=== PATIENT | female | born 1970 | race Caucasian/White ===

== ENCOUNTER 2022-04-26 11:54 | Inpatient (IN) ==
[2022-04-26] MEDS ORDERED: SODIUM CHLORIDE 0.9% 1000ML 1,000 ML IV STA (12:05)
--- NOTE | 2022-04-26 12:12 | Emergency Department Note ---
History of Present Illness General Chief complaint: Arrhythmia/Palpitations Stated complaint: rapid heart rate, dizzy Time Seen by Provider: 04/26/22 11:58 Source: patient History of Present Illness Provider complaint: Tachycardia Onset (ago): month(s) 2 Location: chest Pain Consistency: + intermittent Quality: + other (Fast heartbeat) Relieved By: + rest Exacerbated By: + other (Climbing stairs) Associated symptoms: + shortness of breath; no chest pain, no cough, no fever/chills, no headaches or no nausea/vomiting This is a 51-year-old female who presents with tachycardia which has been going on intermittently for the past 2 months. She states over the past week it has been much more frequent and steady and occurs every time she climbs her stairs in her house. She did state that she rode 20 miles on her bike a week ago and she was not having any significant tachycardia. She states over the past week she gets short of breath when she climbs the stairs. She went to her doctor on Sunday of this week and she has a Zio patch heart monitor. She denies any associated chest discomfort or pain. She has had no fever, cough or cold symptoms, abdominal pain, vomiting, diarrhea, urinary symptoms or leg pain or swelling. She denies any recent immobilization or long trips. She does state that she had an IUD removed 2 weeks ago and had a little vaginal spotting when she went bike riding. She denies any black or bloody stools. Home Medications Medication Instructions Recorded Confirmed Type multivitamin with minerals-folic 2 tab PO HS 04/26/22 04/26/22 History acid 200 mcg chewable tablet (Adult Multivitamin Gummies) sertraline 25 mg tablet 25 mg PO HS 04/26/22 04/26/22 History Allergies Allergy/AdvReac Type Severity Reaction Status Date / Time Sulfa (Sulfonamide Allergy Intermediate SWELLING Verified 04/26/22 12:47 Antibiotics) OF HANDS & FEET Past Med/Surg History Medical History Depression Social History Smoking Status: Never smoker Feels Safe at Home: Yes Review of Systems See HPI for pertinent positives & negatives. and A total of 10 systems reviewed and were otherwise negative Physical Exam Vital Signs Vital Signs - 24 hr 04/26/22 11:55 04/26/22 12:14 04/26/22 12:30 Temperature 36.8 C Temperature Source Temporal Artery Scan Pulse Rate 119 H Pulse Rate [Left] 103 H Pulse Rhythm [Left] Regular Pulse Strength [Left] Normal Respiratory Rate 20 19 Respiratory Effort / Characteristics Non-Labored Spontaneous Non-Labored Respiratory Depth Normal Normal Respiratory Pattern Regular Regular Blood Pressure 129/69 Blood Pressure [Left Arm] 123/76 Blood Pressure Mean 89 Blood Pressure Mean [Left Arm] 91 Blood Pressure Position [Left Arm] Lying Pulse Oximetry 100 98 99 Oxygen Delivery Method Room Air Room Air Room Air Sepsis Recent Fever Within 48 Hours No Sepsis New/Unexplained Change in Mental Status No Sepsis Action Taken by Nursing No Action Required 04/26/22 13:00 04/26/22 13:30 04/26/22 15:00 Temperature Temperature Source Pulse Rate 134 H 109 H 114 H Pulse Rate [Left] Pulse Rhythm [Left] Pulse Strength [Left] Respiratory Rate 20 17 17 Respiratory Effort / Characteristics Respiratory Depth Respiratory Pattern Blood Pressure 153/98 H 127/81 138/74 Blood Pressure [Left Arm] Blood Pressure Mean 116 96 95 Blood Pressure Mean [Left Arm] Blood Pressure Position [Left Arm] Pulse Oximetry 97 98 94 Oxygen Delivery Method Room Air Room Air Room Air Sepsis Recent Fever Within 48 Hours Sepsis New/Unexplained Change in Mental Status Sepsis Action Taken by Nursing 04/26/22 15:30 Temperature Temperature Source Pulse Rate 110 H Pulse Rate [Left] Pulse Rhythm [Left] Pulse Strength [Left] Respiratory Rate 19 Respiratory Effort / Characteristics Respiratory Depth Respiratory Pattern Blood Pressure 125/76 Blood Pressure [Left Arm] Blood Pressure Mean 92 Blood Pressure Mean [Left Arm] Blood Pressure Position [Left Arm] Pulse Oximetry 94 Oxygen Delivery Method Room Air Sepsis Recent Fever Within 48 Hours Sepsis New/Unexplained Change in Mental Status Sepsis Action Taken by Nursing Constitutional: Vital signs reviewed. Eyes: Pupils are equal round reactive to light. Conjunctiva are noninjected. Sclera are icteric. ENT: Pharynx is clear without erythema or exudate. Mucous membranes are moist. No goiter or thyromegaly. Neck supple without meningeal signs. Respiratory: Clear to auscultation bilaterally. Breath sounds are equal bilate rally. Cardiovascular: Tachycardia. Regular rhythm. Zio patch on left chest. GI: Soft, nondistended and nontender. Bowel sounds are present. Rectal: Guaiac negative light brown stool. Musculoskeletal: No peripheral edema. No lower extremity tenderness. Integumentary: Jaundiced. Neurological: The patient is awake and alert. No focal deficits. Psychiatric: Somewhat anxious. Course Administered Medications Discontinued Medications Sodium Chloride (Nss 1000ml) 1,000 mls @ 999 mls/hr IV .[id number] STA Stop: 04/26/22 13:05 Last Infusion: 04/26/22 13:12 Dose: 0 mls/hr Documented by: [id number] Admin: 04/26/22 12:10 Dose: 999 mls/hr Documented by: [id number] Ioversol (Optiray 320 125ml) 119 ml IV ONCE ONE Stop: 04/26/22 13:48 Last Admin: 04/26/22 13:54 Dose: 119 ml Documented by: [id number] Critical Care Time Critical Care Time: Yes Total Critical Care Time: 35 I have personally spent approximately 35 minutes of critical care time in the direct management of this patient. This includes bedside care, interpretation of diagnostic studies, and testing, discussion with consultants, patient, and family members, and other required patient management activities. These minutes are in excess of all separately billable procedures. Medical Decision Making Differential Diagnosis Dysrhythmia, atrial fibrillation with RVR, metabolic derangement, electrolyte abnormality, pulmonary embolism Medical Records Attestation: I reviewed the patient's medical records. I did perform a limited focused review of portions of the patient's old chart on the electronic medical record. The patient has had no recent pertinent visits to this hospital. Home Medications Current Medication List: was personally reviewed by me Laboratory Data Attestation: I reviewed the patient's lab results. Result diagrams: 04/26/22 12:11 04/26/22 12:11 Lab Results 04/26/22 04/26/22 04/26/22 Range/Units 12:11 12:11 12:11 WBC 31.14 H* (4.8-10.8) K/uL RBC 1.38 L (4.2-5.4) M/uL Hgb 4.3 L* (12.0-16.0) g/dL Hct 13.6 L* (37-47) % MCV 98.6 (80-100) fL MCH 31.2 (25-34) pg MCHC 31.6 L (32-36) g/dL RDW Std Deviation 69.7 H (36.4-46.3) fL RDW Coeff of Rosie 24.6 H (11.5-14.5) % Plt Count 181 (130-400) K/uL MPV 8.6 (7.4-10.4) fL Neutrophils % (Manual) 21.7 % Lymphocytes % (Manual) 74.8 % Monocytes % (Manual) 2.2 % Eosinophils % (Manual) 0.4 % Metamyelocytes % (Man) 0.9 % Neutrophils # (Manual) 6.76 H (1.4-6.5) K/uL Total Absolute Neuts 6.76 H (1.4-6.5) K/uL Lymphocytes # (Manual) 23.29 H (1.2-3.4) K/uL Total Abs Lymphocytes 23.29 H (1.2-3.4) K/uL Monocytes # (Manual) 0.69 H (0.11-0.59) K/uL Eosinophils # (Manual) 0.12 (0-0.5) K/uL Metamyelocytes # (Man) 0.28 H (0-0) K/uL Blood Smear Review Polychromasia 2+ Anisocytosis Present Spherocytes 1+ D-Dimer 1100 H* (0-500) ug/L FEU Sodium (136-145) mmol/L Potassium (3.5-5.1) mmol/L Chloride (98-107) mmol/L Carbon Dioxide (21-32) mmol/L Anion Gap (3-11) BUN (6-23) mg/dl Creatinine (0.6-1.2) mg/dl Est Cr Clr Drug Dosing Est GFR ( Amer) ml/min Est GFR (Non-Af Amer) ml/min BUN/Creatinine Ratio (10-20) Glucose (70-99(Fasting)) mg/dl Uric Acid (2.6-7.2) mg/dl Calcium (8.5-10.1) mg/dl Magnesium (1.7-2.4) mg/dl Iron (35-150) mcg/dl Unsaturated IBC (155-355) mcg/dl Transferrin (200-360) mg/dl Ferritin (8-388) ng/ml Total Bilirubin (0.2-1.0) mg/dl Direct Bilirubin (0-0.2) mg/dl AST (13-39) U/L ALT (7-52) U/L Alkaline Phosphatase (34-104) U/L Lactate Dehydrogenase (86-244) U/L Troponin I High Sens (0-14) pg/ml Total Protein (6.0-8.3) gm/dl Albumin (3.4-5.0) gm/dl Globulin (2.5-4.0) gm/dl Albumin/Globulin Ratio (0.9-2) Vitamin B12 (180-914) pg/ml Folate (>5.38) ng/ml Procalcitonin (0-0.5) ng/ml TSH (0.300-4.500) uIu/ml HCG, Qual Negative (Negative) Lyme Disease IgG Ab (Negative) Lyme Disease IgM Ab (Negative) SARS-CoV-2, RNA, NAAT (NEGATIVE) Blood Type Blood Type Recheck Antibody Screen Crossmatch 04/26/22 04/26/22 04/26/22 Range/Units 12:11 12:11 13:19 WBC (4.8-10.8) K/uL RBC (4.2-5.4) M/uL Hgb (12.0-16.0) g/dL Hct (37-47) % MCV (80-100) fL MCH (25-34) pg MCHC (32-36) g/dL RDW Std Deviation (36.4-46.3) fL RDW Coeff of Rosie (11.5-14.5) % Plt Count (130-400) K/uL MPV (7.4-10.4) fL Neutrophils % (Manual) % Lymphocytes % (Manual) % Monocytes % (Manual) % Eosinophils % (Manual) % Metamyelocytes % (Man) % Neutrophils # (Manual) (1.4-6.5) K/uL Total Absolute Neuts (1.4-6.5) K/uL Lymphocytes # (Manual) (1.2-3.4) K/uL Total Abs Lymphocytes (1.2-3.4) K/uL Monocytes # (Manual) (0.11-0.59) K/uL Eosinophils # (Manual) (0-0.5) K/uL Metamyelocytes # (Man) (0-0) K/uL Blood Smear Review Polychromasia Anisocytosis Spherocytes D-Dimer (0-500) ug/L FEU Sodium 137 (136-145) mmol/L Potassium 3.9 (3.5-5.1) mmol/L Chloride 105 (98-107) mmol/L Carbon Dioxide 23 (21-32) mmol/L Anion Gap 9 (3-11) BUN 17 (6-23) mg/dl Creatinine 0.67 (0.6-1.2) mg/dl Est Cr Clr Drug Dosing Not Reportable Est GFR ( Amer) 116.3 ml/min Est GFR (Non-Af Amer) 100.4 ml/min BUN/Creatinine Ratio 25.4 H (10-20) Glucose 96 (70-99(Fasting)) mg/dl Uric Acid (2.6-7.2) mg/dl Calcium 9.4 (8.5-10.1) mg/dl Magnesium 2.0 (1.7-2.4) mg/dl Iron (35-150) mcg/dl Unsaturated IBC (155-355) mcg/dl Transferrin (200-360) mg/dl Ferritin (8-388) ng/ml Total Bilirubin 6.7 H (0.2-1.0) mg/dl Direct Bilirubin (0-0.2) mg/dl AST 71 H (13-39) U/L ALT 65 H (7-52) U/L Alkaline Phosphatase 203 H (34-104) U/L Lactate Dehydrogenase (86-244) U/L Troponin I High Sens 2.5 (0-14) pg/ml Total Protein 7.1 (6.0-8.3) gm/dl Albumin 4.2 (3.4-5.0) gm/dl Globulin 2.9 (2.5-4.0) gm/dl Albumin/Globulin Ratio 1.4 (0.9-2) Vitamin B12 (180-914) pg/ml Folate (>5.38) ng/ml Procalcitonin (0-0.5) ng/ml TSH 1.987 (0.300-4.500) uIu/ml HCG, Qual (Negative) Lyme Disease IgG Ab (Negative) Lyme Disease IgM Ab (Negative) SARS-CoV-2, RNA, NAAT (NEGATIVE) Blood Type O Positive Blood Type Recheck Antibody Screen POSITIVE A Crossmatch See Detail 04/26/22 04/26/22 04/26/22 Range/Units 13:23 15:02 15:50 WBC (4.8-10.8) K/uL RBC (4.2-5.4) M/uL Hgb (12.0-16.0) g/dL Hct (37-47) % MCV (80-100) fL MCH (25-34) pg MCHC (32-36) g/dL RDW Std Deviation (36.4-46.3) fL RDW Coeff of Rosie (11.5-14.5) % Plt Count (130-400) K/uL MPV (7.4-10.4) fL Neutrophils % (Manual) % Lymphocytes % (Manual) % Monocytes % (Manual) % Eosinophils % (Manual) % Metamyelocytes % (Man) % Neutrophils # (Manual) (1.4-6.5) K/uL Total Absolute Neuts (1.4-6.5) K/uL Lymphocytes # (Manual) (1.2-3.4) K/uL Total Abs Lymphocytes (1.2-3.4) K/uL Monocytes # (Manual) (0.11-0.59) K/uL Eosinophils # (Manual) (0-0.5) K/uL Metamyelocytes # (Man) (0-0) K/uL Blood Smear Review Polychromasia Anisocytosis Spherocytes D-Dimer (0-500) ug/L FEU Sodium (136-145) mmol/L Potassium (3.5-5.1) mmol/L Chloride (98-107) mmol/L Carbon Dioxide (21-32) mmol/L Anion Gap (3-11) BUN (6-23) mg/dl Creatinine (0.6-1.2) mg/dl Est Cr Clr Drug Dosing Est GFR ( Amer) ml/min Est GFR (Non-Af Amer) ml/min BUN/Creatinine Ratio (10-20) Glucose (70-99(Fasting)) mg/dl Uric Acid 2.3 L (2.6-7.2) mg/dl Calcium (8.5-10.1) mg/dl Magnesium (1.7-2.4) mg/dl Iron (35-150) mcg/dl Unsaturated IBC (155-355) mcg/dl Transferrin (200-360) mg/dl Ferritin (8-388) ng/ml Total Bilirubin (0.2-1.0) mg/dl Direct Bilirubin (0-0.2) mg/dl AST (13-39) U/L ALT (7-52) U/L Alkaline Phosphatase (34-104) U/L Lactate Dehydrogenase (86-244) U/L Troponin I High Sens (0-14) pg/ml Total Protein (6.0-8.3) gm/dl Albumin (3.4-5.0) gm/dl Globulin (2.5-4.0) gm/dl Albumin/Globulin Ratio (0.9-2) Vitamin B12 (180-914) pg/ml Folate (>5.38) ng/ml Procalcitonin (0-0.5) ng/ml TSH (0.300-4.500) uIu/ml HCG, Qual (Negative) Lyme Disease IgG Ab (Negative) Lyme Disease IgM Ab (Negative) SARS-CoV-2, RNA, NAAT NEGATIVE (NEGATIVE) Blood Type Blood Type Recheck O Positive Antibody Screen Crossmatch 04/26/22 04/26/22 04/26/22 Range/Units 15:50 15:50 15:50 WBC (4.8-10.8) K/uL RBC (4.2-5.4) M/uL Hgb (12.0-16.0) g/dL Hct (37-47) % MCV (80-100) fL MCH (25-34) pg MCHC (32-36) g/dL RDW Std Deviation (36.4-46.3) fL RDW Coeff of Rosie (11.5-14.5) % Plt Count (130-400) K/uL MPV (7.4-10.4) fL Neutrophils % (Manual) % Lymphocytes % (Manual) % Monocytes % (Manual) % Eosinophils % (Manual) % Metamyelocytes % (Man) % Neutrophils # (Manual) (1.4-6.5) K/uL Total Absolute Neuts (1.4-6.5) K/uL Lymphocytes # (Manual) (1.2-3.4) K/uL Total Abs Lymphocytes (1.2-3.4) K/uL Monocytes # (Manual) (0.11-0.59) K/uL Eosinophils # (Manual) (0-0.5) K/uL Metamyelocytes # (Man) (0-0) K/uL Blood Smear Review Polychromasia Anisocytosis Spherocytes D-Dimer (0-500) ug/L FEU Sodium (136-145) mmol/L Potassium (3.5-5.1) mmol/L Chloride (98-107) mmol/L Carbon Dioxide (21-32) mmol/L Anion Gap (3-11) BUN (6-23) mg/dl Creatinine (0.6-1.2) mg/dl Est Cr Clr Drug Dosing Est GFR ( Amer) ml/min Est GFR (Non-Af Amer) ml/min BUN/Creatinine Ratio (10-20) Glucose (70-99(Fasting)) mg/dl Uric Acid (2.6-7.2) mg/dl Calcium (8.5-10.1) mg/dl Magnesium (1.7-2.4) mg/dl Iron 119 (35-150) mcg/dl Unsaturated IBC 218 (155-355) mcg/dl Transferrin 211 (200-360) mg/dl Ferritin 324.6 (8-388) ng/ml Total Bilirubin (0.2-1.0) mg/dl Direct Bilirubin 1.1 H (0-0.2) mg/dl AST (13-39) U/L ALT (7-52) U/L Alkaline Phosphatase (34-104) U/L Lactate Dehydrogenase 427 H (86-244) U/L Troponin I High Sens (0-14) pg/ml Total Protein (6.0-8.3) gm/dl Albumin (3.4-5.0) gm/dl Globulin (2.5-4.0) gm/dl Albumin/Globulin Ratio (0.9-2) Vitamin B12 344 (180-914) pg/ml Folate 21.68 (>5.38) ng/ml Procalcitonin (0-0.5) ng/ml TSH (0.300-4.500) uIu/ml HCG, Qual (Negative) Lyme Disease IgG Ab (Negative) Lyme Disease IgM Ab (Negative) SARS-CoV-2, RNA, NAAT (NEGATIVE) Blood Type Blood Type Recheck Antibody Screen Crossmatch 04/26/22 Range/Units 15:50 WBC (4.8-10.8) K/uL RBC (4.2-5.4) M/uL Hgb (12.0-16.0) g/dL Hct (37-47) % MCV (80-100) fL MCH (25-34) pg MCHC (32-36) g/dL RDW Std Deviation (36.4-46.3) fL RDW Coeff of Rosie (11.5-14.5) % Plt Count (130-400) K/uL MPV (7.4-10.4) fL Neutrophils % (Manual) % Lymphocytes % (Manual) % Monocytes % (Manual) % Eosinophils % (Manual) % Metamyelocytes % (Man) % Neutrophils # (Manual) (1.4-6.5) K/uL Total Absolute Neuts (1.4-6.5) K/uL Lymphocytes # (Manual) (1.2-3.4) K/uL Total Abs Lymphocytes (1.2-3.4) K/uL Monocytes # (Manual) (0.11-0.59) K/uL Eosinophils # (Manual) (0-0.5) K/uL Metamyelocytes # (Man) (0-0) K/uL Blood Smear Review Polychromasia Anisocytosis Spherocytes D-Dimer (0-500) ug/L FEU Sodium (136-145) mmol/L Potassium (3.5-5.1) mmol/L Chloride (98-107) mmol/L Carbon Dioxide (21-32) mmol/L Anion Gap (3-11) BUN (6-23) mg/dl Creatinine (0.6-1.2) mg/dl Est Cr Clr Drug Dosing Est GFR ( Amer) ml/min Est GFR (Non-Af Amer) ml/min BUN/Creatinine Ratio (10-20) Glucose (70-99(Fasting)) mg/dl Uric Acid (2.6-7.2) mg/dl Calcium (8.5-10.1) mg/dl Magnesium (1.7-2.4) mg/dl Iron (35-150) mcg/dl Unsaturated IBC (155-355) mcg/dl Transferrin (200-360) mg/dl Ferritin (8-388) ng/ml Total Bilirubin (0.2-1.0) mg/dl Direct Bilirubin (0-0.2) mg/dl AST (13-39) U/L ALT (7-52) U/L Alkaline Phosphatase (34-104) U/L Lactate Dehydrogenase (86-244) U/L Troponin I High Sens (0-14) pg/ml Total Protein (6.0-8.3) gm/dl Albumin (3.4-5.0) gm/dl Globulin (2.5-4.0) gm/dl Albumin/Globulin Ratio (0.9-2) Vitamin B12 (180-914) pg/ml Folate (>5.38) ng/ml Procalcitonin 0.35 (0-0.5) ng/ml TSH (0.300-4.500) uIu/ml HCG, Qual (Negative) Lyme Disease IgG Ab Negative (Negative) Lyme Disease IgM Ab Negative (Negative) SARS-CoV-2, RNA, NAAT (NEGATIVE) Blood Type Blood Type Recheck Antibody Screen Crossmatch Imaging Data Radiologist's Impression: Chest X-Ray 04/26/22 12:06 XR chest 1V portable CLINICAL HISTORY: Dysrhythmia. COMPARISON STUDY: No previous studies for comparison. TECHNIQUE: 1 view of the chest FINDINGS: Single frontal view of the chest demonstrates the cardiomediastinal silhouette to be within normal limits. A mechanical device is superimposed over the left upper lung. The lungs are clear of alveolar opacities. There is no evidence for pleural effusion. There is no evidence for vascular congestion. There is no acute osseous pathology. IMPRESSION: 1. No acute cardiopulmonary disease. ACT 112: Negative or not required by law. Electronically signed by: Gerard Ricci M.D. 04/26/2022 12:28 PM Abdomen/Pelvis CT 04/26/22 13:14 CT ANGIOGRAM OF THE CHEST; CT SCAN OF THE ABDOMEN AND PELVIS WITH IV CONTRAST CLINICAL HISTORY: Dyspnea. Jaundice. COMPARISON STUDY: Chest x-ray dated 04/26/2022. TECHNIQUE: Following the IV administration of 119 of Optiray 320, CT angiogram o f the chest is performed from the upper abdomen to the thoracic inlet utilizing the pulmonary embolus protocol. Images are reviewed in the axial, sagittal, coronal planes. 3-D MIPS images are created and assessed. Subsequently, CT scan of the abdomen and pelvis was performed from the lung bases to the proximal femora. Images are reviewed in the axial, sagittal, and coronal planes. IV contrast was administered without complication. A dose lowering technique was utilized adhering to the principles of ALARA. CT DOSE: 1302.15 mGycm FINDINGS: CHEST: Thyroid: Imaged portions of the thyroid gland are normal in size and attenuation. Thoracic aorta: The thoracic aorta is normal in caliber and demonstrates standard 3-vessel arch anatomy. No dissection is seen. Pulmonary vasculature: The pulmonary trunk is normal in caliber. There are no filling defects identified in the main, lobar, or segmental pulmonary arteries to indicate pulmonary embolus. Heart: The heart is normal in size and without pericardial effusion. Lungs and pleural spaces: There is no lobar consolidation or pleural effusion. Dependent atelectasis is present in both lungs. The trachea and central airways are clear. A punctate nodule in the right upper lobe as seen on image #193. A 9 mm subsolid nodule in the right lower lobe as seen on image 86. A 4 mm subsolid nodule in the right upper lobe as seen on image 196, and a 4 mm subsolid nodule in the left lower lobe as seen on image #175. Mild intralobular septal thic kening is noted. Esophagus: Esophageal wall appears circumferentially thickened. A small hiatal hernia is noted. Mediastinum: There is no mediastinal lymphadenopathy. Amrita: Clear. Axillae: There is no axillary lymphadenopathy. Bony thorax: No lytic or blastic lesions are identified. ABDOMEN AND PELVIS: Liver: The contrast-enhanced liver is normal in size, contour, and attenuation. There is no intrahepatic or ductal dilatation. The hepatic veins and portal veins are patent. Gallbladder: Unremarkable. Spleen: The spleen is markedly enlarged measuring 19.7 cm in length. Pancreas: Unremarkable. Adrenal glands: Unremarkable. Kidneys: The contrast enhanced kidneys are normal in size and without hydronephrosis. The kidneys enhance symmetrically. A 5.2 cm cyst arises from the lower pole of the left kidney. Additional subcentimeter cortical hypodensities also likely represent cysts but are too small for definitive characterization. Mild urothelial thickening and enhancement is noted involving both ureters. Abdominal vasculature: The abdominal aorta is normal in course and caliber noting scattered foci of atherosclerotic calcification. Bowel: There is mild to moderate colonic diverticulosis without CT evidence of acute diverticulitis. No bowel obstruction is seen. Mild fecal retention is seen throughout the colon. The appendix is well-visualized and normal. Uterus, Peritoneum: There is no intraperitoneal free air or abdominal ascites. There is a small fat-containing umbilical hernia. Lymphadenopathy: None. Pelvic viscera: The bladder is normal as visualized. Enhancing myometrial lesions are pathologically indeterminant but typical for fibroids. No adnexal lesion is seen. A fat-containing hernia is noted in the right groin. Skeletal structures: No lytic or blastic lesions are seen. IMPRESSION: 1. There is no evidence of pulmonary embolus in the main, lobar, or segmental pulmonary arteries. 2. There is no lobar consolidation or pleural effusion. 3. Mild intralobular septal thickening there is suggested throughout both lungs. Correlate clinically for evidence of fluid overload/mild congestion. 4. Subsolid pulmonary nodules measure up to 9 mm. These are pathologically indeterminant and may be inflammatory. A 6 month follow-up chest CT is recommend ed for reassessment. 5. Marked splenomegaly. 6. The esophagus appears circumferentially thickened. Correlate clinically for evidence of esophagitis. This can be further assessed with endoscopy if clinically warranted. 7. Mild urothelial thickening and enhancement is seen involving both ureters. Correlate with clinical findings and urinalysis. 8. Enhancing myometrial lesions are pathologically indeterminant but typical for fibroids. 9. No pathologically enlarged lymph nodes are identified in the chest, abdomen, or pelvis. 10. The liver is normal in appearance with no intra- or extrahepatic biliary ductal dilatation. 11. Additional findings as above. ACT 112: Negative or not required by law. Electronically signed by: Juan Seth M.D. 04/26/2022 2:11 PM Chest CTA 04/26/22 13:14 CT ANGIOGRAM OF THE CHEST; CT SCAN OF THE ABDOMEN AND PELVIS WITH IV CONTRAST CLINICAL HISTORY: Dyspnea. Jaundice. COMPARISON STUDY: Chest x-ray dated 04/26/2022. TECHNIQUE: Following the IV administration of 119 of Optiray 320, CT angiogram of the chest is performed from the upper abdomen to the thoracic inlet utilizing the pulmonary embolus protocol. Images are reviewed in the axial, sagittal, coronal planes. 3-D MIPS images are created and assessed. Subsequently, CT scan of the abdomen and pelvis was performed from the lung bases to the proximal femora. Images are reviewed in the axial, sagittal, and coronal planes. IV contrast was administered without complication. A dose lowering technique was utilized adhering to the principles of ALARA. CT DOSE: 1302.15 mGycm FINDINGS: CHEST: Thyroid: Imaged portions of the thyroid gland are normal in size and attenuation. Thoracic aorta: The thoracic aorta is normal in caliber and demonstrates st andard 3-vessel arch anatomy. No dissection is seen. Pulmonary vasculature: The pulmonary trunk is normal in caliber. There are no filling defects identified in the main, lobar, or segmental pulmonary arteries to indicate pulmonary embolus. Heart: The heart is normal in size and without pericardial effusion. Lungs and pleural spaces: There is no lobar consolidation or pleural effusion. Dependent atelectasis is present in both lungs. The trachea and central airways are clear. A punctate nodule in the right upper lobe as seen on image #193. A 9 mm subsolid nodule in the right lower lobe as seen on image 86. A 4 mm subsolid nodule in the right upper lobe as seen on image 196, and a 4 mm subsolid nodule in the left lower lobe as seen on image #175. Mild intralobular septal thickening is noted. Esophagus: Esophageal wall appears circumferentially thickened. A small hiatal hernia is noted. Mediastinum: There is no mediastinal lymphadenopathy. Amrita: Clear. Axillae: There is no axillary lymphadenopathy. Bony thorax: No lytic or blastic lesions are identified. ABDOMEN AND PELVIS: Liver: The contrast-enhanced liver is normal in size, contour, and attenuation. There is no intrahepatic or ductal dilatation. The hepatic veins and portal veins are patent. Gallbladder: Unremarkable. Spleen: The spleen is markedly enlarged measuring 19.7 cm in length. Pancreas: Unremarkable. Adrenal glands: Unremarkable. Kidneys: The contrast enhanced kidneys are normal in size and without hydronephrosis. The kidneys enhance symmetrically. A 5.2 cm cyst arises from the lower pole of the left kidney. Additional subcentimeter cortical hypodensities also likely represent cysts but are too small for definitive characterization. Mild urothelial thickening and enhancement is noted involving both ureters. Abdominal vasculature: The abdominal aorta is normal in course and caliber noting scattered foci of atherosclerotic calcification. Bowel: There is mild to moderate colonic diverticulosis without CT evidence of acute diverticulitis. No bowel obstruction is seen. Mild fecal retention is seen throughout the colon. The appendix is well-visualized and normal. Uterus, Peritoneum: There is no intraperitoneal free air or abdominal ascites. There is a small fat-containing umbilical hernia. Lymphadenopathy: None. Pelvic viscera: The bladder is normal as visualized. Enhancing myometrial lesions are pathologically indeterminant but typical for fibroids. No adnexal lesion is seen. A fat-containing hernia is noted in the right groin. Skeletal structures: No lytic or blastic lesions are seen. IMPRESSION: 1. There is no evidence of pulmonary embolus in the main, lobar, or segmental pulmonary arteries. 2. There is no lobar consolidation or pleural effusion. 3. Mild intralobular septal thickening there is suggested throughout both lungs. Correlate clinically for evidence of fluid overload/mild congestion. 4. Subsolid pulmonary nodules measure up to 9 mm. These are pathologically indeterminant and may be inflammatory. A 6 month follow-up chest CT is recommended for reassessment. 5. Marked splenomegaly. 6. The esophagus appears circumferentially thickened. Correlate clinically for evidence of esophagitis. This can be further assessed with endoscopy if clinically warranted. 7. Mild urothelial thickening and enhancement is seen involving both ureters. Correlate with clinical findings and urinalysis. 8. Enhancing myometrial lesions are pathologically indeterminant but typical for fibroids. 9. No pathologically enlarged lymph nodes are identified in the chest, abdomen, or pelvis. 10. The liver is normal in appearance with no intra- or extrahepatic biliary ductal dilatation. 11. Additional findings as above. ACT 112: Negative or not required by law. Electronically signed by: Juan Seth M.D. 04/26/2022 2:11 PM ECG Data Attestation: I personally reviewed and interpreted this ECG as follows: Indication: + tachycardia Rate (beats per minute): 110 Rhythm: + sinus tachycardia ECG [place]: + Normal ECG ST segments: no ST elevation ECG Findings: no PVCs Comparison ECG Date: no prior available MDM Narrative I did evaluate the patient as noted above. She is presenting with intermittent tachycardia for about 2 months. Over the past week it became more constant and related to climbing up the stairs in her house. She has seen her doctor who placed a ZIO heart monitor on her. She came in today because she felt lightheaded with her tachycardia. She does appear pale and jaundiced on exam. IV access was established. I did treat her with a liter normal saline IV. I did place an order for continuous cardiac monitoring. The monitor showed sinus tachycardia rate of 111 bpm. I did order and personally review the patient's 12-lead EKG as described above. She has sinus tachycardia without ischemic changes. No right-sided strain. I did order and personally reviewed the images of the patient's chest x-ray as described above. There is no evidence of pneumonia or acute cardiopulmonary process. I did order and review the patient's blood work as noted in the electronic medical record. She does have a white count of 31,000 with a hemoglobin of 4.3 and a platelet count of 181. D- dimer is elevated at 1100. CMP is remarkable for a total bili of 6.7 AST of 71 ALT of 65 and alk phos of 203. High-sensitivity troponin is negative. Beta-hCG is negative. I did discuss the test results with the patient. I did perform a rectal examination which showed guaiac negative brown stool. I did obtain informed consent for blood transfusion. I did order 2 units of packed RBCs to be transfused immediately. After discussion with the patient, I did order a CT angiogram of the chest and CT of the abdomen and pelvis. I did review the images myself as well as the radiology report as described above. There is no evidence of pulmonary embolism. She has no biliary obstruction or liver or gallbladder disease on CT scan. She does have significant splenomegaly. She likely has a hemolytic process causing her anemia and hyperbilirubinemia. I was informed by the blood bank that the patient will require special testing at [place] and then blood products from [facility] which will take 6 to 8 hours. I did inform the patient of the delay. She remains hemodynamically stable with mild tachycardia. I did discuss case with the hospitalist and lead case manager. Impression & Plan Symptomatic anemia, Lymphocytosis, Hyperbilirubinemia, Tachycardia, Dyspnea on exertion, Splenomegaly Discharge Plan Visit Data Chief Complaint: Arrhythmia/Palpitations Stated Complaint: rapid heart rate, dizzy ED Provider: Lavelle Childers Discharge Problem: Symptomatic anemia, Lymphocytosis, Hyperbilirubinemia, Tachycardia, Dyspnea on exertion, Splenomegaly Patient Disposition: Admitted As Inpatient Forms Stand Alone Forms: My [facility] [place] [facility] Prescriptions Prescriptions: No Action sertraline 25 mg tablet 25 mg PO HS RF: 0 Adult Multivitamin Gummies 200 mcg Tablet,Chewable 2 tab PO HS RF: 0 Referrals Referrals: Ishmael Frazier MD [ED Physician] -
--- NOTE | 2022-04-26 12:29 | XRay Report ---
XR chest 1V portable CLINICAL HISTORY: Dysrhythmia. COMPARISON STUDY: No previous studies for comparison. TECHNIQUE: 1 view of the chest FINDINGS: Single frontal view of the chest demonstrates the cardiomediastinal silhouette to be within normal li mits. A mechanical device is superimposed over the left upper lung. The lungs are clear of alveolar o pacities. There is no evidence for pleural effusion. There is no evidence for vascular congestion. Th ere is no acute osseous pathology. IMPRESSION: 1. No acute cardiopulmonary disease. ACT 112: Negative or not required by law. Electronically signed by: Gerard Ricci M.D. 04/26/2022 12:28 PM
[2022-04-26 12:51] LABS: Hematocrit (blood only) 13.6 % (37-47); Hemoglobin 4.3 g/dL (12.0-16.0); Mean Corpuscular Hemoglobin 31.2 pg (25-34); Mean Corpuscular Hgb Conc 31.6 g/dL (32-36); Mean Corpuscular Volume 98.6 fL (80-100); Mean Platelet Volume 8.6 fL (7.4-10.4); Platelet Count 181 K/uL (130-400); RDW Coefficient of Variation 24.6 % (11.5-14.5); RDW Standard Deviation 69.7 fL (36.4-46.3); Red Blood Count 1.38 M/uL (4.2-5.4); White Blood Count 31.14 K/uL (4.8-10.8)
[2022-04-26 13:01] LABS: Pregnancy Test, Serum Negative (Negative)
[2022-04-26 13:05] LABS: D Dimer 1100 ug/L FEU (0-500)
[2022-04-26] MEDS ORDERED: SODIUM CHLORIDE 0.9% 250 ML IV PRN ×2 (13:05→22:13)
[2022-04-26 13:08] LABS: Alanine Aminotransferase 65 U/L (7-52); Albumin Globulin Ratio 1.4 (0.9-2); Albumin Level 4.2 gm/dl (3.4-5.0); Alkaline Phosphatase 203 U/L (34-104); Anion Gap 9 (3-11); Aspartate Aminotransferase 71 U/L (13-39); BUN Creatinine Ratio 25.4 (10-20); Bilirubin,Total 6.7 mg/dl (0.2-1.0); Blood Urea Nitrogen 17 mg/dl (6-23); Calcium 9.4 mg/dl (8.5-10.1); Carbon Dioxide 23 mmol/L (21-32); Chloride 105 mmol/L (98-107); Est GFR (African American) 116.3 ml/min; Est GFR (Non-African American) 100.4 ml/min; Globulin 2.9 gm/dl (2.5-4.0); Glucose 96 mg/dl (70-99(Fasting)); Potassium 3.9 mmol/L (3.5-5.1); Sodium 137 mmol/L (136-145); Total Protein 7.1 gm/dl (6.0-8.3)
[2022-04-26 13:10] LABS: Troponin I High Sensitivity 2.5 pg/ml (0-14)
[2022-04-26 13:37] LABS: ALC (manual) 23.29 K/uL (1.2-3.4); ANC (manual) 6.76 K/uL (1.4-6.5); Anisocytosis Present; Eosinophils # (manual) 0.12 K/uL (0-0.5); Eosinophils % (manual) 0.4 %; Lymphocytes # (manual) 23.29 K/uL (1.2-3.4); Lymphocytes % (manual) 74.8 %; Metamyelocytes # (manual) 0.28 K/uL (0-0); Metamyelocytes % (manual) 0.9 %; Monocytes # (manual) 0.69 K/uL (0.11-0.59); Monocytes % (manual) 2.2 %; Neutrophils # (manual) 6.76 K/uL (1.4-6.5); Neutrophils % (manual) 21.7 %; Polychromasia 2+; Spherocytes 1+
[2022-04-26] MEDS ORDERED: OPTIRAY 320 125ml IV ONE (13:47)
--- NOTE | 2022-04-26 14:12 | CT Scan Report ---
CT ANGIOGRAM OF THE CHEST; CT SCAN OF THE ABDOMEN AND PELVIS WITH IV CONTRAST CLINICAL HISTORY: Dyspnea. Jaundice. COMPARISON STUDY: Chest x-ray dated 04/26/2022. TECHNIQUE: Following the IV administration of 119 of Optiray 320, CT angiogram of the chest is perfor med from the upper abdomen to the thoracic inlet utilizing the pulmonary embolus protocol. Images are reviewed in the axial, sagittal, coronal planes. 3-D MIPS images are created and assessed. Subsequen tly, CT scan of the abdomen and pelvis was performed from the lung bases to the proximal femora. Imag es are reviewed in the axial, sagittal, and coronal planes. IV contrast was administered without comp lication. A dose lowering technique was utilized adhering to the principles of ALARA. CT DOSE: 1302.15 mGycm FINDINGS: CHEST: Thyroid: Imaged portions of the thyroid gland are normal in size and attenuation. Thoracic aorta: The thoracic aorta is normal in caliber and demonstrates standard 3-vessel arch anato my. No dissection is seen. Pulmonary vasculature: The pulmonary trunk is normal in caliber. There are no filling defects identif ied in the main, lobar, or segmental pulmonary arteries to indicate pulmonary embolus. Heart: The heart is normal in size and without pericardial effusion. Lungs and pleural spaces: There is no lobar consolidation or pleural effusion. Dependent atelectasis is present in both lungs. The trachea and central airways are clear. A punctate nodule in the right u pper lobe as seen on image #193. A 9 mm subsolid nodule in the right lower lobe as seen on image 86. A 4 mm subsolid nodule in the right upper lobe as seen on image 196, and a 4 mm subsolid nodule in th e left lower lobe as seen on image #175. Mild intralobular septal thickening is noted. Esophagus: Esophageal wall appears circumferentially thickened. A small hiatal hernia is noted. Mediastinum: There is no mediastinal lymphadenopathy. Amrita: Clear. Axillae: There is no axillary lymphadenopathy. Bony thorax: No lytic or blastic lesions are identified. ABDOMEN AND PELVIS: Liver: The contrast-enhanced liver is normal in size, contour, and attenuation. There is no intrahepa tic or ductal dilatation. The hepatic veins and portal veins are patent. Gallbladder: Unremarkable. Spleen: The spleen is markedly enlarged measuring 19.7 cm in length. Pancreas: Unremarkable. Adrenal glands: Unremarkable. Kidneys: The contrast enhanced kidneys are normal in size and without hydronephrosis. The kidneys enh ance symmetrically. A 5.2 cm cyst arises from the lower pole of the left kidney. Additional subcentim eter cortical hypodensities also likely represent cysts but are too small for definitive characteriza tion. Mild urothelial thickening and enhancement is noted involving both ureters. Abdominal vasculature: The abdominal aorta is normal in course and caliber noting scattered foci of a therosclerotic calcification. Bowel: There is mild to moderate colonic diverticulosis without CT evidence of acute diverticulitis. No bowel obstruction is seen. Mild fecal retention is seen throughout the colon. The appendix is wel l-visualized and normal. Uterus, Peritoneum: There is no intraperitoneal free air or abdominal ascites. There is a small fat-containin g umbilical hernia. Lymphadenopathy: None. Pelvic viscera: The bladder is normal as visualized. Enhancing myometrial lesions are pathologically indeterminant but typical for fibroids. No adnexal lesion is seen. A fat-containing hernia is noted i n the right groin. Skeletal structures: No lytic or blastic lesions are seen. IMPRESSION: 1. There is no evidence of pulmonary embolus in the main, lobar, or segmental pulmonary arteries. 2. There is no lobar consolidation or pleural effusion. 3. Mild intralobular septal thickening there is suggested throughout both lungs. Correlate clinically for evidence of fluid overload/mild congestion. 4. Subsolid pulmonary nodules measure up to 9 mm. These are pathologically indeterminant and may be i nflammatory. A 6 month follow-up chest CT is recommended for reassessment. 5. Marked splenomegaly. 6. The esophagus appears circumferentially thickened. Correlate clinically for evidence of esophagiti s. This can be further assessed with endoscopy if clinically warranted. 7. Mild urothelial thickening and enhancement is seen involving both ureters. Correlate with clinical findings and urinalysis. 8. Enhancing myometrial lesions are pathologically indeterminant but typical for fibroids. 9. No pathologically enlarged lymph nodes are identified in the chest, abdomen, or pelvis. 10. The liver is normal in appearance with no intra- or extrahepatic biliary ductal dilatation. 11. Additional findings as above. ACT 112: Negative or not required by law. Electronically signed by: Juan Seth M.D. 04/26/2022 2:11 PM
--- NOTE | 2022-04-26 15:57 | History & Physical Report ---
Date of Service April 26, 2022 Assessment & Plan (1) Symptomatic anemia: Plan: #. Acute anemia, symptomatic #. Splenomegaly #. Hyperbilirubinemia #. Elevated liver enzymes #. Lymphocytosis Patient presented with signs and symptoms of symptomatic anemia, admitting WBC of 31,000 w/ lymphocytes >23K, Pro-Sean pending, liver enzymes mildly elevated with elevated total bilirubin, direct bilirubin pending. Admitting hemoglobin of 4.3, 2 units PRBC ordered in the ED, follow-up with hemoglobin 1 hour after second unit is done. Admitting CTA chest and CT AP reviewed, splenomegaly noted, no lymphadenopathy. Likely intravascular hemolysis, LDL, uric acid, indirect bilirubin, retics, haptoglobin along with iron profile has been sent. Folic acid for now. FOBT to r/o GI bleed. Likely get in touch with pcb designer tomorrow once all the results of the test are out. Await flow cytometry. med/tele. Needs blood transfusion as soon as possible. contacted blood bank, antibody screen was positive and hence blood was sent to other facility for further testing and awaiting compatible blood for transfusion. Very important to avoid fall and any kind of blood thinners as of now. DONOT ALLOW PATIENT TO WALK OUT OF BED ALONE. AVOID OOB UNTIL TRANSFUSION. #. Multiple subsolid nodules in the lung Multiple, largest one 9 mm subsolid nodule in the right lower lobe F/u CT chest in 6 months #. h/o MDD c/w sertraline #. DVT Px: SCDs for now, until Hb is stable #. Full code History of Present Illness Chief Complaint: Palpitation and SOB with minimal exertion Primary Care Provider: Grabiel Draper DO 51-year-old lady with PMH of SLE [not on any medications], myalgia and myositis, mild single episode of MDD on sertraline presented to our ED 04/26 with complaint of signs and symptoms suggestive of symptomatic anemia. Per patient, she has been having rapid heart rate on and off for couple of months with exertion associated with occasional shortness of breath. Since last week, her heart rate and shortness of breath has been worsening while climbing up stairs at home. Today she felt weak in her legs and could not climb up the stairs. She denies chest pain, endorses dizziness and weakness and extreme fatigue, denies cough or fever or belly pain or acute changes in bowel or bladder habit or skin rash anywhere in the body or known tick bites. Patient does go to camping 2-3 times a year, recently was around the where her camping bed fell and hit her on the side of her head, she does have some mild headache since then, occasionally needing Tylenol, has been constant. Patient denies any blood in stool or dark stool. Patient does have dark yellow urine per her. Patient also complains of night sweats for couple of months and decreasing appetite for the last 1 week. Patient denies weight loss. Patient denies smoking/chewing tobacco, consumes alcohol once every other weekend, denies any use of recreational drugs or marijuana. Full code Personal history significant for lupus and anxiety. Lupus diagnosed 20 years ago. Stable. Family history positive for father dying from [place] at age 50, sister with breast cancer and aunt with blood clot. Allergies Allergy/AdvReac Type Severity Reaction Status Date / Time Sulfa (Sulfonamide Allergy Intermediate SWELLING Verified 04/26/22 12:47 Antibiotics) OF HANDS & FEET Home Medications Medication Instructions Recorded Confirmed Type multivitamin with minerals-folic 2 tab PO HS 04/26/22 04/26/22 History acid 200 mcg chewable tablet (Adult Multivitamin Gummies) sertraline 25 mg tablet 25 mg PO HS 04/26/22 04/26/22 History Past Med/Surg History Medical History Depression Social History Smoking Status: Never smoker Feels Safe at Home: Yes Review of Systems Review of Systems: Negative otherwise mentioned in HPI. Physical Exam Physical Exam: GENERAL: Alert and oriented x3. NAD, on RA. HEENT: + pallor, + icterus. Pupils equal, round and reactive to light. Oral mucosa moist. NECK: No JVD, no neck masses. HEART: S1 and S2 heard. tachycardic. No murmur, no gallop. RESPIRATORY SYSTEM: Normal AP diameter. No accessory muscle use. No wheezing, no crackles. ABDOMEN: Soft, bowel sounds present, nontender, no distention. Splenomegaly + CENTRAL NERVOUS SYSTEM: No facial droop. Speech is clear. Obeys simple commands. Moves extremities. EXTREMITIES: No edema, no erythema seen. Results & Data Results & Data ([facility]) Vital Signs (Past 12 Hours) Vital Signs Temp Pulse Pulse Resp BP BP Pulse Ox 04/26/22 15:00 114 H 17 138/74 94 04/26/22 13:30 109 H 17 127/81 98 04/26/22 13:00 134 H 20 153/98 H 97 04/26/22 12:30 103 H 19 123/76 99 04/26/22 12:14 98 04/26/22 11:55 36.8 C 119 H 20 129/69 100 Code Status & VTE Plan VTE Prophylaxis Plan VTE Prophylaxis will be ordered: Yes
[2022-04-26 16:44] LABS: Procalcitonin 0.35 ng/ml (0-0.5)
[2022-04-26 16:45] LABS: Bilirubin Direct 1.1 mg/dl (0-0.2)
[2022-04-26 16:50] LABS: Lyme Ab IgG w/WB Rflx Negative (Negative); Lyme Ab IgM w/WB Rflx Negative (Negative)
[2022-04-26 17:00] LABS: Ferritin 324.6 ng/ml (8-388)
[2022-04-26 17:06] LABS: Folate (Folic Acid) 21.68 ng/ml (>5.38)
[2022-04-26] MEDS: FOLIC ACID 1 MG TAB PO SCH (17:45)
[2022-04-26] MEDS: ACETAMINOPHEN 325 MG TAB PO PRN (17:57)
[2022-04-26] MEDS: SERTRALINE HCL 50 MG TABLET PO SCH (21:55)
[2022-04-26] MEDS: MULTIVITAMIN TAB PO SCH (21:55)
[2022-04-27] MEDS: ACETAMINOPHEN 325 MG TAB PO PRN ×3 (00:10→08:59)
[2022-04-27] MEDS ORDERED: diphenhydrAMINE Capsule 25 MG CAP PO ONE (04:25)
[2022-04-27 07:09] LABS: Albumin Globulin Ratio 1.6 (0.9-2); BUN Creatinine Ratio 22.1 (10-20); Bilirubin,Total 5.5 mg/dl (0.2-1.0); Calcium 9.1 mg/dl (8.5-10.1); Creatinine Clr Calc Pharmacy 95.8 ml/min; Est GFR (African American) 115.7 ml/min; Est GFR (Non-African American) 99.9 ml/min; Globulin 2.5 gm/dl (2.5-4.0); Magnesium 2.1 mg/dl (1.7-2.4); Potassium 3.8 mmol/L (3.5-5.1); Total Protein 6.5 gm/dl (6.0-8.3)
[2022-04-27 07:18] LABS: Hematocrit (blood only) 10.7 % (37-47); Hemoglobin 3.5 g/dL (12.0-16.0); Mean Corpuscular Hemoglobin 33.7 pg (25-34); Mean Corpuscular Hgb Conc 32.7 g/dL (32-36); Mean Corpuscular Volume 102.9 fL (80-100); Nucleated RBC # (auto) 0.11 K/uL (0-0); Nucleated RBC % (auto) 0.3 %; Platelet Count 185 K/uL (130-400); Red Blood Count 1.04 M/uL (4.2-5.4); Reticulocyte % 12.2 % (0.5-2.0); Reticulocytes # 0.13 10^6/uL (0.02-0.10); White Blood Count 30.87 K/uL (4.8-10.8)
[2022-04-27] MEDS ORDERED: diphenhydrAMINE Capsule 25 MG CAP ONE (07:32)
[2022-04-27] MEDS: FOLIC ACID 1 MG TAB PO SCH (10:44)
[2022-04-27] MEDS ORDERED: VANCOMYCIN CONSULT ACTIVE PRN ×2 (10:47)
--- NOTE | 2022-04-27 11:12 | Pharmacy Report ---
Pharmacy PK ABX Note - Date of Service April 27, 2022 - Assessment and Plan Assessment 51 year old F who presented with symptomatic anemia. Started on vancomycin + cefepime due to severe leukocytosis and fever. No potential source identified at this time. Plan Vancomycin * Loading dose: 1500 mg IV * Maintenance dose: 1250 mg IV every 12 hours * Regimen is predicted to achieve target AUC/GARY of 400-600 mg/L.hr * predicted steady state tough: 17.2 mcg/mL * predicted steady state AUC: 568 mg/L.hr * Drug level to be ordered if regimen is continued beyond 48 hours Pharmacy will continue to follow and will adjust dose/frequency as necessary. Thank you. Pharmacy has transitioned to AUC monitoring for vancomycin. AUC/GARY is the preferred PK/PD target and is associated with decreased risk of nephrotoxicity compared to traditional trough targets.
--- NOTE | 2022-04-27 12:30 | Hospitalist Progress Note ---
Date of Service April 27, 2022 Assessment & Plan (1) Symptomatic anemia: Plan: #. Acute anemia, symptomatic #. Splenomegaly #. Hyperbilirubinemia #. Elevated liver enzymes #. Lymphocytosis Patient presented with signs and symptoms of symptomatic anemia, admitting WBC of 31,000 w/ lymphocytes >23K with lymphocytosis Pro-Sean trending up Liver enzymes mildly elevated with elevated total bilirubin Admitting hemoglobin of 4.3 Had antibodies in blood screen LDH elevated. Haptoglobin pending Elevated rec count Peripheral smear noted Patient getting PRBC transfusion Tonny test positive Patient has hemolytic anemia. Could also have some lymphoproliferative disorder Discussed with Medicaid Collection Specialist/Oncologist Dr Santo Nair. Reviewed patient and available results with him He recommends starting prednisone 1mg/kg with omeprazole Admitting CTA chest and CT AP reviewed, splenomegaly noted, no lymphadenopathy. Continue folic acid Iron studies reviewed Pathologist sent FLOW Having fever With temp, leukocytosis, tachycardia, Sepsis is a possibility Send blood cultures, UA with reflex culture Lactate Start empirical antibiotics #. Multiple subsolid nodules in the lung Multiple, largest one 9 mm subsolid nodule in the right lower lobe F/u CT chest in 6 months #. h/o MDD c/w sertraline #. DVT Px: SCDs for now, until Hb is stable #. Full code Admission and Anticipated Discharge Date Admission Date: April 26, 2022 Subjective Patient seen and examined Reports exertional dyspnea, palpitation, weakness Denied any cough, chest pain Denied dysuria, frequ, urgency Denied hematuria, hematochezia, melena, hemoptysis, hematemesis Reports LMP was a long time ago. Had her IUD removed about 2 weeks ago Denied any family h/o Cancer or hematological problems Had 2 normal deliveries and 1 miscarriage in her life Physical Exam Constitutional: + ill appearing and + well hydrated; no acute distress Eyes: +pallor ENMT: external ear and nose normal, oropharynx normal Respiratory: normal respiratory effort, lungs clear to auscultation Cardiovascular: Rate/Rhythm: regular rhythm and + tachycardic S1 S2 Gastrointestinal (Abdomen): normal bowel sounds, soft, nontender, no hepatosplenomegaly Musculoskeletal: no cyanosis or clubbing, extremities motor strength 5/5 Neurologic: PERRL, EOMI, accommodation nl, no face palsy, no dysarthria Psychiatric: A+Ox3, euthymic affect Results & Data Results & Data ([facility]) Vital Signs (Past 12 Hours) Vital Signs Temp Pulse Pulse Resp BP BP BP 04/27/22 11:34 37.2 C 107 H 16 110/71 04/27/22 11:05 38.1 C H 110 H 16 120/70 04/27/22 10:57 38.1 C H 114 H 18 114/70 04/27/22 09:57 37.9 C H 113 H 16 122/74 04/27/22 09:27 37.6 C H 112 H 16 122/75 04/27/22 09:12 38.1 C H 113 H 16 117/75 04/27/22 08:56 38 C H 119 H 16 123/77 04/27/22 08:00 37.4 C 116 H 18 116/72 04/27/22 07:30 118 H 04/27/22 06:45 37.4 C 04/27/22 05:11 38.1 C H 113/74 04/27/22 04:13 37.8 C H 119 H 20 101/66 Pulse Ox 04/27/22 11:34 89 L 04/27/22 11:05 94 04/27/22 10:57 93 04/27/22 09:57 94 04/27/22 09:27 92 04/27/22 09:12 94 04/27/22 08:56 96 04/27/22 08:00 93 04/27/22 07:30 04/27/22 06:45 04/27/22 05:11 04/27/22 04:13 94 Laboratory Results Abnormal lab results 04/26/22 04/26/22 04/26/22 Range/Units 12:11 12:11 12:11 WBC 31.14 H* (4.8-10.8) K/uL RBC 1.38 L (4.2-5.4) M/uL Hgb 4.3 L* (12.0-16.0) g/dL Hct 13.6 L* (37-47) % MCV (80-100) fL MCHC 31.6 L (32-36) g/dL RDW Std Deviation 69.7 H (36.4-46.3) fL RDW Coeff of Rosie 24.6 H (11.5-14.5) % Reticulocyte % (Auto) (0.5-2.0) % Reticulocyte # (0.02-0.10) 10^6/uL Absolute Nucleated RBC (0-0) K/uL Neutrophils # (Manual) 6.76 H (1.4-6.5) K/uL Total Absolute Neuts 6.76 H (1.4-6.5) K/uL Lymphocytes # (Manual) 23.29 H (1.2-3.4) K/uL Total Abs Lymphocytes 23.29 H (1.2-3.4) K/uL Monocytes # (Manual) 0.69 H (0.11-0.59) K/uL Metamyelocytes # (Man) 0.28 H (0-0) K/uL D-Dimer 1100 H* (0-500) ug/L FEU BUN/Creatinine Ratio 25.4 H (10-20) Glucose (70-99(Fasting)) mg/dl Uric Acid (2.6-7.2) mg/dl Total Bilirubin 6.7 H (0.2-1.0) mg/dl Direct Bilirubin (0-0.2) mg/dl AST 71 H (13-39) U/L ALT 65 H (7-52) U/L Alkaline Phosphatase 203 H (34-104) U/L Lactate Dehydrogenase (86-244) U/L Procalcitonin (0-0.5) ng/ml Antibody Screen Crossmatch 04/26/22 04/26/22 04/26/22 Range/Units 13:19 15:50 15:50 WBC (4.8-10.8) K/uL RBC (4.2-5.4) M/uL Hgb (12.0-16.0) g/dL Hct (37-47) % MCV (80-100) fL MCHC (32-36) g/dL RDW Std Deviation (36.4-46.3) fL RDW Coeff of Rosie (11.5-14.5) % Reticulocyte % (Auto) (0.5-2.0) % Reticulocyte # (0.02-0.10) 10^6/uL Absolute Nucleated RBC (0-0) K/uL Neutrophils # (Manual) (1.4-6.5) K/uL Total Absolute Neuts (1.4-6.5) K/uL Lymphocytes # (Manual) (1.2-3.4) K/uL Total Abs Lymphocytes (1.2-3.4) K/uL Monocytes # (Manual) (0.11-0.59) K/uL Metamyelocytes # (Man) (0-0) K/uL D-Dimer (0-500) ug/L FEU BUN/Creatinine Ratio (10-20) Glucose (70-99(Fasting)) mg/dl Uric Acid 2.3 L (2.6-7.2) mg/dl Total Bilirubin (0.2-1.0) mg/dl Direct Bilirubin (0-0.2) mg/dl AST (13-39) U/L ALT (7-52) U/L Alkaline Phosphatase (34-104) U/L Lactate Dehydrogenase 427 H (86-244) U/L Procalcitonin (0-0.5) ng/ml Antibody Screen POSITIVE A Crossmatch See Detail 04/26/22 04/27/22 04/27/22 Range/Units 15:50 05:55 05:55 WBC 30.87 H* (4.8-10.8) K/uL RBC 1.04 L (4.2-5.4) M/uL Hgb 3.5 L* (12.0-16.0) g/dL Hct 10.7 L* (37-47) % MCV 102.9 H (80-100) fL MCHC (32-36) g/dL RDW Std Deviation (36.4-46.3) fL RDW Coeff of Rosie (11.5-14.5) % Reticulocyte % (Auto) 12.2 H (0.5-2.0) % Reticulocyte # 0.13 H (0.02-0.10) 10^6/uL Absolute Nucleated RBC 0.11 H (0-0) K/uL Neutrophils # (Manual) (1.4-6.5) K/uL Total Absolute Neuts (1.4-6.5) K/uL Lymphocytes # (Manual) (1.2-3.4) K/uL Total Abs Lymphocytes (1.2-3.4) K/uL Monocytes # (Manual) (0.11-0.59) K/uL Metamyelocytes # (Man) (0-0) K/uL D-Dimer (0-500) ug/L FEU BUN/Creatinine Ratio 22.1 H (10-20) Glucose 100 H (70-99(Fasting)) mg/dl Uric Acid (2.6-7.2) mg/dl Total Bilirubin 5.5 H (0.2-1.0) mg/dl Direct Bilirubin 1.1 H (0-0.2) mg/dl AST 59 H (13-39) U/L ALT 54 H (7-52) U/L Alkaline Phosphatase 190 H (34-104) U/L Lactate Dehydrogenase (86-244) U/L Procalcitonin (0-0.5) ng/ml Antibody Screen Crossmatch 04/27/22 Range/Units 05:55 WBC (4.8-10.8) K/uL RBC (4.2-5.4) M/uL Hgb (12.0-16.0) g/dL Hct (37-47) % MCV (80-100) fL MCHC (32-36) g/dL RDW Std Deviation (36.4-46.3) fL RDW Coeff of Rosie (11.5-14.5) % Reticulocyte % (Auto) (0.5-2.0) % Reticulocyte # (0.02-0.10) 10^6/uL Absolute Nucleated RBC (0-0) K/uL Neutrophils # (Manual) (1.4-6.5) K/uL Total Absolute Neuts (1.4-6.5) K/uL Lymphocytes # (Manual) (1.2-3.4) K/uL Total Abs Lymphocytes (1.2-3.4) K/uL Monocytes # (Manual) (0.11-0.59) K/uL Metamyelocytes # (Man) (0-0) K/uL D-Dimer (0-500) ug/L FEU BUN/Creatinine Ratio (10-20) Glucose (70-99(Fasting)) mg/dl Uric Acid (2.6-7.2) mg/dl Total Bilirubin (0.2-1.0) mg/dl Direct Bilirubin (0-0.2) mg/dl AST (13-39) U/L ALT (7-52) U/L Alkaline Phosphatase (34-104) U/L Lactate Dehydrogenase (86-244) U/L Procalcitonin 0.52 H (0-0.5) ng/ml Antibody Screen Crossmatch
[2022-04-27] MEDS: CEFEPIME 1,000 MG in SYRINGE 0 ML IV SCH ×3 (13:59→21:19)
[2022-04-27] MEDS ORDERED: predniSONE 5 MG TAB PO SCH (14:00)
[2022-04-27] MEDS: VANCOMYCIN HCL 1,500 MG in SODIUM CHLORIDE 0.9% 500 ML IV ONE ×2 (14:00→14:01)
[2022-04-27] MEDS: predniSONE 50 MG TAB PO SCH (14:49)
[2022-04-27] MEDS: PANTOprazole 40 MG TAB PO SCH (14:49)
[2022-04-27 16:36] LABS: Mean Corpuscular Hgb Conc 33.7 g/dL (32-36); Mean Platelet Volume 8.8 fL (7.4-10.4); Platelet Count 171 K/uL (130-400)
[2022-04-27 16:53] LABS: Appearance Urine Clear (Clear); Bacteria Urine Automated Negative (Negative); Bilirubin Urine Negative (Negative); Blood Urine Negative (Negative); Color Urine Dark Yellow; Glucose Urine UA Negative (Negative); Ketones Urine Negative (Negative); Leukocyte Esterase Urine 2+ (Negative); Nitrite Urine Positive (Negative); Protein Urine Negative (Negative); RBC Urine Automated 0-4 /hpf (0-4); Specific Gravity Urine 1.013 (1.000-1.030); Urobilinogen Urine Positive (Negative); WBC Urine Automated >30 /hpf (0-5)
[2022-04-27] MEDS ORDERED: SODIUM CHLORIDE 0.9% 250 ML IV PRN (16:57)
[2022-04-27 16:59] LABS: Hematocrit (blood only) 17.8 % (37-47); Mean Corpuscular Hemoglobin 31.9 pg (25-34); Mean Corpuscular Volume 94.7 fL (80-100); Nucleated RBC # (auto) 0.07 K/uL (0-0); Nucleated RBC % (auto) 0.3 %; RDW Coefficient of Variation 24.3 % (11.5-14.5); RDW Standard Deviation 64.4 fL (36.4-46.3); Red Blood Count 1.88 M/uL (4.2-5.4); White Blood Count 24.75 K/uL (4.8-10.8)
[2022-04-27 17:02] LABS: ALC (manual) 20.02 K/uL (1.2-3.4); ANC (manual) 4.31 K/uL (1.4-6.5); Anisocytosis Present; Lymphocytes # (manual) 20.02 K/uL (1.2-3.4); Lymphocytes % (manual) 80.9 %; Monocytes # (manual) 0.42 K/uL (0.11-0.59); Monocytes % (manual) 1.7 %; Neutrophils # (manual) 4.31 K/uL (1.4-6.5); Neutrophils % (manual) 17.4 %; Poikilocytosis Present; Polychromasia 1+
[2022-04-27] MEDS: MULTIVITAMIN TAB PO SCH (20:20)
[2022-04-27] MEDS: SERTRALINE HCL 50 MG TABLET PO SCH (20:20)
--- NOTE | 2022-04-27 22:52 | Electrocardiogram Report ---
Test Reason : Blood Pressure : / mmHG Vent. Rate : 110 BPM Atrial Rate : 110 BPM P-R Int : 134 ms QRS Dur : 084 ms QT Int : 330 ms P-R-T Axes : 062 023 046 degrees QTc Int : 446 ms Sinus tachycardia Otherwise normal ECG No previous ECGs available Confirmed by Wayne Donouhe ([id number]) on 04/27/2022 10:52:17 PM Referred By: Confirmed By:Wayne Donohue
[2022-04-27] MEDS: VANCOMYCIN HCL 1,250 MG in SODIUM CHLORIDE 0.9% 250 ML IV SCH (23:40)
[2022-04-28] MEDS: CEFEPIME 1,000 MG in SYRINGE 0 ML IV SCH ×3 (05:02→21:18)
[2022-04-28] MEDS: FOLIC ACID 1 MG TAB PO SCH (07:40)
[2022-04-28] MEDS: predniSONE 50 MG TAB PO SCH (07:40)
[2022-04-28] MEDS: PANTOprazole 40 MG TAB PO SCH (07:40)
[2022-04-28 08:51] LABS: Hematocrit (blood only) 23.7 % (37-47); Hemoglobin 7.8 g/dL (12.0-16.0); Mean Corpuscular Hemoglobin 29.2 pg (25-34); Mean Corpuscular Hgb Conc 32.9 g/dL (32-36); Mean Corpuscular Volume 88.8 fL (80-100); Mean Platelet Volume 8.8 fL (7.4-10.4); Platelet Count 160 K/uL (130-400); RDW Standard Deviation 63.4 fL (36.4-46.3); Red Blood Count 2.67 M/uL (4.2-5.4); White Blood Count 19.23 K/uL (4.8-10.8)
[2022-04-28 09:12] LABS: Albumin Globulin Ratio 1.5 (0.9-2); Albumin Level 4.1 gm/dl (3.4-5.0); Bilirubin,Total 3.4 mg/dl (0.2-1.0); Calcium 9.2 mg/dl (8.5-10.1); Creatinine Clr Calc Pharmacy 129.8 ml/min; Est GFR (African American) 128.1 ml/min; Est GFR (Non-African American) 110.5 ml/min; Globulin 2.7 gm/dl (2.5-4.0); Potassium 3.7 mmol/L (3.5-5.1); Total Protein 6.8 gm/dl (6.0-8.3)
[2022-04-28 09:32] LABS: Anisocytosis Present; Basophils # (auto) 0.03 K/uL (0-0.2); Basophils % (auto) 0.2 %; Eosinophils # (auto) 0.01 K/uL (0-0.5); Eosinophils % (auto) 0.1 %; Immature Granulocytes # (auto) 0.07 K/uL (0.00-0.02); Immature Granulocytes % (auto) 0.4 %; Lymphocytes # (auto) 13.14 K/uL (1.2-3.4); Lymphocytes % (auto) 68.3 %; Monocytes % (auto) 6.8 %; Neutrophils # (auto) 4.68 K/uL (1.4-6.5); Neutrophils % (auto) 24.2 %; Polychromasia 1+; Spherocytes Occasional
[2022-04-28] MEDS: VANCOMYCIN HCL 1,250 MG in SODIUM CHLORIDE 0.9% 250 ML IV SCH ×2 (11:19→23:32)
--- NOTE | 2022-04-28 11:49 | Hospitalist Progress Note ---
Date of Service April 28, 2022 Assessment & Plan (1) Symptomatic anemia: Plan: #. Acute anemia, symptomatic #. Splenomegaly #. Hyperbilirubinemia #. Elevated liver enzymes #. Lymphocytosis Patient presented with signs and symptoms of symptomatic anemia, admitting WBC of 31,000 w/ lymphocytes >23K with lymphocytosis Pro-Sean trending up Liver enzymes mildly elevated with elevated total bilirubin Admitting hemoglobin of 4.3 Had antibodies in blood screen LDH elevated. Haptoglobin <8 Elevated rec count Peripheral smear noted PNH is ruled out Tonny test positive Admitting CTA chest and CT AP reviewed, splenomegaly noted, no lymphadenopathy. Patient has autoimmune hemolytic anemia. Could also have some lymphoproliferative disorder Discussed with Paraffin Machine Operator/Oncologist Dr Santo Niar. Reviewed patient and available results with him Patient was started on prednisone 75mg daily with omeprazole Will need oncology follow up for further evaluation. Oncology will taper prednisone as appropriate Oncology will follow up Flow cytometry Got 3 PRBC yesterday Hb is 7.8. Monitor Hb. LFTs improving Continue folic acid Fever is resolved With temp, leukocytosis, tachycardia, Sepsis is a possibility. Though these can also result from hemolytic process as above Normal lactate Continue empirical antibiotics for now until blood cultures are negative 48h #. Multiple subsolid nodules in the lung Multiple, largest one 9 mm subsolid nodule in the right lower lobe F/u CT chest in 6 months #. h/o MDD c/w sertraline #. DVT Px: SCDs for now, until Hb is stable #. Full code Admission and Anticipated Discharge Date Admission Date: April 26, 2022 Subjective Patient seen and examined Patient reports feeling better today No dizziness, cough, chest pain, shortness of breath Yet to walk around to assess if still having exertional dyspnea Denied nausea, vomiting, abd pain, diarrhea, constipation Denied urinary symptoms Physical Exam Constitutional: + well hydrated; no acute distress Eyes: +Pallor ENMT: external ear and nose normal, oropharynx normal Respiratory: normal respiratory effort, lungs clear to auscultation Cardiovascular: Rate/Rhythm: regular rate and regular rhythm S1 S2 Gastrointestinal (Abdomen): normal bowel sounds, soft, nontender, no hepatosplenomegaly Musculoskeletal: no cyanosis or clubbing, extremities motor strength 5/5 Neurologic: PERRL, EOMI, accommodation nl, no face palsy, no dysarthria Psychiatric: A+Ox3, euthymic affect Results & Data Results & Data ([facility]) Vital Signs (Past 12 Hours) Vital Signs Temp Pulse Pulse Resp BP BP Pulse Ox 04/28/22 08:01 36.8 C 85 16 145/71 H 98 04/28/22 07:26 77 04/28/22 03:02 36.9 C 94 H 18 109/67 95 Laboratory Results Abnormal lab results 04/26/22 04/26/22 04/27/22 Range/Units 13:19 15:50 15:51 WBC 24.75 H (4.8-10.8) K/uL RBC 1.88 L (4.2-5.4) M/uL Hgb 6.0 L* (12.0-16.0) g/dL Hct 17.8 L* (37-47) % RDW Std Deviation 64.4 H (36.4-46.3) fL RDW Coeff of Rosie 24.3 H (11.5-14.5) % Lymph # (Auto) (1.2-3.4) K/uL Edwards # (Auto) (0.11-0.59) K/uL Immature Gran # (Auto) (0.00-0.02) K/uL Absolute Nucleated RBC 0.07 H (0-0) K/uL Lymphocytes # (Manual) 20.02 H (1.2-3.4) K/uL Total Abs Lymphocytes 20.02 H (1.2-3.4) K/uL Haptoglobin <8 L (43-212) mg/dL Creatinine (0.6-1.2) mg/dl BUN/Creatinine Ratio (10-20) Glucose (70-99(Fasting)) mg/dl Total Bilirubin (0.2-1.0) mg/dl AST (13-39) U/L Alkaline Phosphatase (34-104) U/L Urine Nitrite (Negative) Urine Urobilinogen (Negative) Ur Leukocyte Esterase (Negative) Urine WBC (Auto) (0-5) /hpf U Epithel Cells (Auto) (0-5) /lpf Antibody Screen POSITIVE A Crossmatch See Detail 04/27/22 04/28/22 04/28/22 Range/Units 16:22 08:24 08:24 WBC 19.23 H (4.8-10.8) K/uL RBC 2.67 L (4.2-5.4) M/uL Hgb 7.8 L (12.0-16.0) g/dL Hct 23.7 L (37-47) % RDW Std Deviation 63.4 H (36.4-46.3) fL RDW Coeff of Rosie 21.0 H (11.5-14.5) % Lymph # (Auto) 13.14 H (1.2-3.4) K/uL Edwards # (Auto) 1.30 H (0.11-0.59) K/uL Immature Gran # (Auto) 0.07 H (0.00-0.02) K/uL Absolute Nucleated RBC (0-0) K/uL Lymphocytes # (Manual) (1.2-3.4) K/uL Total Abs Lymphocytes (1.2-3.4) K/uL Haptoglobin (43-212) mg/dL Creatinine 0.50 L (0.6-1.2) mg/dl BUN/Creatinine Ratio 38.0 H (10-20) Glucose 151 H (70-99(Fasting)) mg/dl Total Bilirubin 3.4 H (0.2-1.0) mg/dl AST 43 H (13-39) U/L Alkaline Phosphatase 181 H (34-104) U/L Urine Nitrite Positive A (Negative) Urine Urobilinogen Positive H (Negative) Ur Leukocyte Esterase 2+ H (Negative) Urine WBC (Auto) >30 H (0-5) /hpf U Epithel Cells (Auto) 10-20 H (0-5) /lpf Antibody Screen Crossmatch
[2022-04-28 15:22] LABS: Hematocrit (blood only) 25.4 % (37-47)
[2022-04-28] MEDS: SERTRALINE HCL 50 MG TABLET PO SCH (21:15)
[2022-04-28] MEDS: MULTIVITAMIN TAB PO SCH (21:16)
[2022-04-29] MEDS: CEFEPIME 1,000 MG in SYRINGE 0 ML IV SCH (06:01)
[2022-04-29] MEDS: FOLIC ACID 1 MG TAB PO SCH (08:03)
[2022-04-29] MEDS: predniSONE 50 MG TAB PO SCH (08:04)
[2022-04-29] MEDS: PANTOprazole 40 MG TAB PO SCH (08:05)
[2022-04-29 08:47] LABS: Hematocrit (blood only) 24.6 % (37-47); Hemoglobin 7.8 g/dL (12.0-16.0); Mean Corpuscular Hemoglobin 28.4 pg (25-34); Mean Corpuscular Hgb Conc 31.7 g/dL (32-36); Mean Corpuscular Volume 89.5 fL (80-100); Mean Platelet Volume 8.8 fL (7.4-10.4); Platelet Count 157 K/uL (130-400); RDW Coefficient of Variation 21.3 % (11.5-14.5); RDW Standard Deviation 64.7 fL (36.4-46.3); Red Blood Count 2.75 M/uL (4.2-5.4); White Blood Count 20.98 K/uL (4.8-10.8)
[2022-04-29 08:59] LABS: Albumin Globulin Ratio 1.4 (0.9-2); Albumin Level 3.9 gm/dl (3.4-5.0); BUN Creatinine Ratio 43.6 (10-20); Bilirubin,Total 2.3 mg/dl (0.2-1.0); Creatinine Clr Calc Pharmacy 117.7 ml/min; Est GFR (African American) 124.1 ml/min; Est GFR (Non-African American) 107.1 ml/min; Globulin 2.8 gm/dl (2.5-4.0); Potassium 3.4 mmol/L (3.5-5.1); Total Protein 6.7 gm/dl (6.0-8.3)
--- NOTE | 2022-04-29 10:24 | Pharmacy Report ---
Pharmacy Vanc AUC Short Note - Date of Service April 29, 2022 - Assessment & Plan Assessment 51 year old F who presented with symptomatic anemia. Started on vancomycin + cefepime due to severe leukocytosis and fever. No potential source identified at this time. Blood and urine cultures NGTD. Renal function stable. Day #3 antimicrobial therapy Plan Vancomycin * AUC/GARY is the preferred PK/PD target for vancomycin * AUC guided dosing is effective and associated with decreased risk of nephrotoxicity compared to traditional trough targets * Random vancomycin level - 11mcg/mL this AM (~8.5hr level) predicted to achieve an AUC of ~400mg/L.hr. * Change to 1750 mg IV every 12 hours * Will obtain a trough around steady state of new regimen if vancomycin continued. Pharmacy will continue to follow and will adjust dose/frequency as necessary. Thank you.
[2022-04-29] MEDS ORDERED: VANCOMYCIN HCL 1,750 MG in SODIUM CHLORIDE 0.9% 500 ML IV SCH (10:30)
--- NOTE | 2022-04-29 10:34 | Hospitalist Progress Note ---
Date of Service April 29, 2022 Assessment & Plan (1) Symptomatic anemia: Plan: #. Acute anemia, symptomatic #. Splenomegaly #. Hyperbilirubinemia #. Elevated liver enzymes #. Lymphocytosis Patient presented with signs and symptoms of symptomatic anemia, admitting WBC of 31,000 w/ lymphocytes >23K with lymphocytosis Pro-Sean trending up Liver enzymes elevated with elevated total bilirubin Admitting hemoglobin of 4.3 Had antibodies in blood screen LDH elevated. Haptoglobin <8 Elevated rec count Peripheral smear noted PNH is ruled out Tonny test positive Admitting CTA chest and CT AP reviewed, splenomegaly noted, no lymphadenopathy. Patient has autoimmune hemolytic anemia. Could also have some lymphoproliferative disorder On 04/27 and 04/28, I discussed with Universal Grinder Tool/Oncologist Dr Santo Nair. Reviewed patient and available results with him Patient was started on prednisone 75mg daily with omeprazole Will need oncology follow up for further evaluation. Oncology will taper prednisone as appropriate Oncology will follow up Flow cytometry Got 3 PRBC since admission Hb has been stable for the past 24h. Hb is 7.8 today Monitor Hb. LFTs improving Continue folic acid Fever is resolved With temp, leukocytosis, tachycardia, Sepsis is a possibility, though less likely. These can also result from hemolytic process as above Normal lactate Blood culture negative x 48h Antibiotics discontinued #. Multiple subsolid nodules in the lung Multiple, largest one 9 mm subsolid nodule in the right lower lobe F/u CT chest in 6 months #. h/o MDD c/w sertraline #. DVT Px: SCDs for now, Ambulate #. Full code Admission and Anticipated Discharge Date Admission Date: April 26, 2022 Subjective Patient seen and examined Reports PEREZ, dizziness, palpitation have resolved Denied any chest pain, cough Denied any nausea, vomiting, abd pain, diarrhea, constipation Denied any dysuria, freq, urgency Physical Exam Constitutional: + well hydrated; no acute distress ENMT: external ear and nose normal, oropharynx normal Respiratory: normal respiratory effort, lungs clear to auscultation Cardiovascular: Rate/Rhythm: regular rate and regular rhythm S1 S2 Gastrointestinal (Abdomen): normal bowel sounds, soft, nontender, no hepatosplenomegaly Musculoskeletal: no cyanosis or clubbing, extremities motor strength 5/5 Neurologic: PERRL, EOMI, accommodation nl, no face palsy, no dysarthria Psychiatric: A+Ox3, euthymic affect Results & Data Results & Data ([facility]) Vital Signs (Past 12 Hours) Vital Signs Temp Pulse Resp BP BP Pulse Ox 04/29/22 08:01 36.6 C 79 17 136/85 97 04/29/22 04:04 36.7 C 77 18 117/74 96 04/28/22 23:19 36.7 C 82 18 120/71 96 Laboratory Results Abnormal lab results 04/26/22 04/28/22 04/29/22 Range/Units 12:11 14:57 07:53 WBC 31.14 H* (4.8-10.8) K/uL RBC 1.38 L (4.2-5.4) M/uL Hgb 4.3 L* 8.0 L (12.0-16.0) g/dL Hct 13.6 L* 25.4 L (37-47) % MCHC 31.6 L (32-36) g/dL RDW Std Deviation 69.7 H (36.4-46.3) fL RDW Coeff of Rosie 24.6 H (11.5-14.5) % Neutrophils # (Manual) 6.76 H (1.4-6.5) K/uL Total Absolute Neuts 6.76 H (1.4-6.5) K/uL Lymphocytes # (Manual) 23.29 H (1.2-3.4) K/uL Total Abs Lymphocytes 23.29 H (1.2-3.4) K/uL Monocytes # (Manual) 0.69 H (0.11-0.59) K/uL Metamyelocytes # (Man) 0.28 H (0-0) K/uL Potassium 3.4 L (3.5-5.1) mmol/L Chloride 109 H (98-107) mmol/L BUN 24 H (6-23) mg/dl Creatinine 0.55 L (0.6-1.2) mg/dl BUN/Creatinine Ratio 43.6 H (10-20) Total Bilirubin 2.3 H (0.2-1.0) mg/dl Alkaline Phosphatase 149 H (34-104) U/L Lactate Dehydrogenase (86-244) U/L 04/29/22 04/29/22 Range/Units 07:53 07:53 WBC 20.98 H (4.8-10.8) K/uL RBC 2.75 L (4.2-5.4) M/uL Hgb 7.8 L (12.0-16.0) g/dL Hct 24.6 L (37-47) % MCHC 31.7 L (32-36) g/dL RDW Std Deviation 64.7 H (36.4-46.3) fL RDW Coeff of Rosie 21.3 H (11.5-14.5) % Neutrophils # (Manual) (1.4-6.5) K/uL Total Absolute Neuts (1.4-6.5) K/uL Lymphocytes # (Manual) (1.2-3.4) K/uL Total Abs Lymphocytes (1.2-3.4) K/uL Monocytes # (Manual) (0.11-0.59) K/uL Metamyelocytes # (Man) (0-0) K/uL Potassium (3.5-5.1) mmol/L Chloride (98-107) mmol/L BUN (6-23) mg/dl Creatinine (0.6-1.2) mg/dl BUN/Creatinine Ratio (10-20) Total Bilirubin (0.2-1.0) mg/dl Alkaline Phosphatase (34-104) U/L Lactate Dehydrogenase 363 H (86-244) U/L
[2022-04-29 14:46] LABS: Hematocrit (blood only) 25.3 % (37-47); Hemoglobin 8.1 g/dL (12.0-16.0)
[2022-04-29] MEDS: SERTRALINE HCL 50 MG TABLET PO SCH (20:17)
[2022-04-29] MEDS: MULTIVITAMIN TAB PO SCH (20:20)
[2022-04-30 07:37] LABS: Hematocrit (blood only) 27.1 % (37-47); Hemoglobin 8.7 g/dL (12.0-16.0); Mean Corpuscular Hemoglobin 28.5 pg (25-34); Mean Corpuscular Hgb Conc 32.1 g/dL (32-36); Mean Corpuscular Volume 88.9 fL (80-100); Mean Platelet Volume 8.9 fL (7.4-10.4); Platelet Count 162 K/uL (130-400); RDW Coefficient of Variation 21.1 % (11.5-14.5); Red Blood Count 3.05 M/uL (4.2-5.4)
[2022-04-30 07:59] LABS: Albumin Globulin Ratio 1.5 (0.9-2); Albumin Level 3.9 gm/dl (3.4-5.0); BUN Creatinine Ratio 40.8 (10-20); Bilirubin,Total 1.7 mg/dl (0.2-1.0); Calcium 9.1 mg/dl (8.5-10.1); Creatinine Clr Calc Pharmacy 131.8 ml/min; Est GFR (African American) 128.9 ml/min; Est GFR (Non-African American) 111.2 ml/min; Globulin 2.6 gm/dl (2.5-4.0); Potassium 3.5 mmol/L (3.5-5.1); Total Protein 6.5 gm/dl (6.0-8.3)
[2022-04-30] MEDS: FOLIC ACID 1 MG TAB PO SCH (08:14)
[2022-04-30] MEDS: predniSONE 50 MG TAB PO SCH (08:14)
[2022-04-30] MEDS: PANTOprazole 40 MG TAB PO SCH (08:15)
--- NOTE | 2022-04-30 12:19 | Discharge Summary ---
Date of Service April 30, 2022 Admission HPI Per Admitting Provider 51-year-old lady with PMH of SLE [not on any medications], myalgia and myositis, mild single episode of MDD on sertraline presented to our ED 04/26 with complaint of signs and symptoms suggestive of symptomatic anemia. Per patient, she has been having rapid heart rate on and off for couple of months with exertion associated with occasional shortness of breath. Since last week, her heart rate and shortness of breath has been worsening while climbing up stairs at home. Today she felt weak in her legs and could not climb up the stairs. She denies chest pain, endorses dizziness and weakness and extreme fatigue, denies cough or fever or belly pain or acute changes in bowel or bladder habit or skin rash anywhere in the body or known tick bites. Patient does go to camping 2-3 times a year, recently was around the where her camping bed fell and hit her on the side of her head, she does have some mild headache since then, occasionally needing Tylenol, has been constant. Patient denies any blood in stool or dark stool. Patient does have dark yellow urine per her. Patient also complains of night sweats for couple of months and decreasing appetite for the last 1 week. Patient denies weight loss. Patient denies smoking/chewing tobacco, consumes alcohol once every other weekend, denies any use of recreational drugs or marijuana. Full code Personal history significant for lupus and anxiety. Lupus diagnosed 20 years ago. Stable. Family history positive for father dying from [place] at age 50, sister with breast cancer and aunt with blood clot. Admission Exam Per Admitting Provider GENERAL: Alert and oriented x3. NAD, on RA. HEENT: + pallor, + icterus. Pupils equal, round and reactive to light. Oral mucosa moist. NECK: No JVD, no neck masses. HEART: S1 and S2 heard. tachycardic. No murmur, no gallop. RESPIRATORY SYSTEM: Normal AP diameter. No accessory muscle use. No wheezing, no crackles. ABDOMEN: Soft, bowel sounds present, nontender, no distention. Splenomegaly + CENTRAL NERVOUS SYSTEM: No facial droop. Speech is clear. Obeys simple commands. Moves extremities. EXTREMITIES: No edema, no erythema seen. Principal Diagnosis Symptomatic anemia Autoimmune hemolytic anemia Leukocytosis. Lymphocytosis Discharge Exam Constitutional + well hydrated; no acute distress Eyes +pallor ENMT external ear and nose normal, oropharynx normal Respiratory normal respiratory effort, lungs clear to auscultation Cardiovascular Rate/Rhythm: regular rate and regular rhythm S1 S2 Gastrointestinal (Abdomen) normal bowel sounds, soft, nontender, no hepatosplenomegaly Musculoskeletal no cyanosis or clubbing, extremities motor strength 5/5 Neurologic PERRL, EOMI, accommodation nl, no face palsy, no dysarthria Psychiatric A+Ox3, euthymic affect Discharge Data Allergies Allergy/AdvReac Type Severity Reaction Status Date / Time Sulfa (Sulfonamide Allergy Intermediate SWELLING Verified 04/26/22 12:47 Antibiotics) OF HANDS & FEET Consultations 04/26/22 15:06 ED Decision to Admit Stat Ordered Studies 04/26/22 13:14 CT abd pelvis IV con only Stat CT angio chest PE protocol Stat Thyroid: Imaged portions of the thyroid gland are normal in size and attenuation. Thoracic aorta: The thoracic aorta is normal in caliber and demonstrates standard 3-vessel arch anatomy. No dissection is seen. Pulmonary vasculature: The pulmonary trunk is normal in caliber. There are no filling defects identified in the main, lobar, or segmental pulmonary arteries to indicate pulmonary embolus. Heart: The heart is normal in size and without pericardial effusion. Lungs and pleural spaces: There is no lobar consolidation or pleural effusion. Dependent atelectasis is present in both lungs. The trachea and central airways are clear. A punctate nodule in the right upper lobe as seen on image #193. A 9 mm subsolid nodule in the right lower lobe as seen on image 86. A 4 mm subsolid nodule in the right upper lobe as seen on image 196, and a 4 mm subsolid nodule in the left lower lobe as seen on image #175. Mild intralobular septal thickening is noted. Esophagus: Esophageal wall appears circumferentially thickened. A small hiatal hernia is noted. Mediastinum: There is no mediastinal lymphadenopathy. Amrita: Clear. Axillae: There is no axillary lymphadenopathy. Bony thorax: No lytic or blastic lesions are identified. ABDOMEN AND PELVIS: Liver: The contrast-enhanced liver is normal in size, contour, and attenuation. There is no intrahepatic or ductal dilatation. The hepatic veins and portal veins are patent. Gallbladder: Unremarkable. Spleen: The spleen is markedly enlarged measuring 19.7 cm in length. Pancreas: Unremarkable. Adrenal glands: Unremarkable. Kidneys: The contrast enhanced kidneys are normal in size and without hydronephrosis. The kidneys enhance symmetrically. A 5.2 cm cyst arises from the lower pole of the left kidney. Additional subcentimeter cortical hypodensities also likely represent cysts but are too small for definitive characterization. Mild urothelial thickening and enhancement is noted involving both ureters. Abdominal vasculature: The abdominal aorta is normal in course and caliber noting scattered foci of atherosclerotic calcification. Bowel: There is mild to moderate colonic diverticulosis without CT evidence of acute diverticulitis. No bowel obstruction is seen. Mild fecal retention is seen throughout the colon. The appendix is well-visualized and normal. Uterus, Peritoneum: There is no intraperitoneal free air or abdominal ascites. There is a small fat-containing umbilical hernia. Lymphadenopathy: None. Pelvic viscera: The bladder is normal as visualized. Enhancing myometrial lesions are pathologically indeterminant but typical for fibroids. No adnexal lesion is seen. A fat-containing hernia is noted in the right groin. Skeletal structures: No lytic or blastic lesions are seen. IMPRESSION: 1. There is no evidence of pulmonary embolus in the main, lobar, or segmental pulmonary arteries. 2. There is no lobar consolidation or pleural effusion. 3. Mild intralobular septal thickening there is suggested throughout both lungs. Correlate clinically for evidence of fluid overload/mild congestion. 4. Subsolid pulmonary nodules measure up to 9 mm. These are pathologically indeterminant and may be inflammatory. A 6 month follow-up chest CT is recommended for reassessment. 5. Marked splenomegaly. 6. The esophagus appears circumferentially thickened. Correlate clinically for evidence of esophagitis. This can be further assessed with endoscopy if clinically warranted. 7. Mild urothelial thickening and enhancement is seen involving both ureters. Correlate with clinical findings and urinalysis. 8. Enhancing myometrial lesions are pathologically indeterminant but typical for fibroids. 9. No pathologically enlarged lymph nodes are identified in the chest, abdomen, or pelvis. 10. The liver is normal in appearance with no intra- or extrahepatic biliary ductal dilatation. 11. Additional findings as above. Hospital Course (1) Symptomatic anemia: #. Acute anemia, symptomatic #. Splenomegaly #. Hyperbilirubinemia #. Elevated liver enzymes #. Lymphocytosis Patient presented with signs and symptoms of symptomatic anemia, admitting WBC of 31,000 w/ lymphocytes >23K with lymphocytosis Liver enzymes elevated with elevated total bilirubin Admitting hemoglobin of 4.3 Had antibodies in blood screen LDH elevated. Haptoglobin <8 Elevated reticulocyte count Peripheral smear noted Significant lymphocytosis with some nuclear membrane irregularities, notable agglutination PNH is ruled out as PNH panel was negative for PNH clone Tonny test was positive Admitting CTA chest and CT AP reviewed, splenomegaly noted, no lymphadenopathy. Patient has autoimmune hemolytic anemia. Could also have some lymphoproliferative disorder Patient was comanaged with Reworker/Oncologist Dr Santo Nair Patient was started on prednisone 75mg daily with omeprazole Got 3 PRBC since admission Hb has been stable for the past 48h. Hb is 8.[address] Nair today. Patient is ok for discharge on p.o. prednisone 75 mg daily for 1 week and taper by 10 mg weekly or as directed by oncology clinic Will need oncology follow up for further evaluation. Dr. Nair reported that his office will call patient tomorrow for appointment and follow-up labs. Heme/Oncology will taper prednisone as appropriate Heme/Oncology will follow up Flow cytometry pending Continue folic acid Fever initially present on presentation resolved Sepsis was ruled out and antibiotics discontinued. #. Multiple subsolid nodules in the lung Multiple, largest one 9 mm subsolid nodule in the right lower lobe F/u CT chest in 6 months #. h/o MDD On sertraline Total Time Total Time Spent Total Time Spent (In Minutes): 50 Total Time Includes: Examination of the Patient, Discharge Planning, Medication Reconciliation and Communication With Other Providers Discharge Plan Discharge Items Patient Disposition: Home - Self-Care Reason For Visit: SYMPTOMATIC ANEMIA Discharge Diagnosis: Symptomatic anemia Autoimmune hemolytic anemia Leukocytosis. Lymphocytosis Activity: Resume your previous activity Non-emergency contact: Primary Care Provider and Oncologist Call non-emergency contact if: you have any medication questions and your symptoms worsen Follow-up/Referrals: Grabiel Draper, [Primary Care Provider] - (Call for appointment within the week) Santo Nair MD [Surgeon] - Diet: Regular Addtl Attending Provider Instructions: Mrs Dela Cruz. You came to the hospital complaining of palpitation and shortness of breath with exertion. You were evaluated and found to autoimmune hemolytic anemia and elevated white blood cell count. Your received 3 units of blood. You were started Prednisone. Your symptoms resolved and hemoglobin has been stable. You need to continue prednisone 75mg daily and taper by 10mg after each week or as instructed by the Reworker. Please continue to take the pantoprazole while on the prednisone Please ensure follow up with the Reworker and Primary Doctor as we discussed. It was a pleasure taking care of you. Pending Studies at Discharge: Yes (Flow cytometry) Stand-Alone Forms: My [facility], Work/School Release, Smoking Cessation Medications and DC Order Prescriptions: New pantoprazole 40 mg Tablet,Delayed Release (Dr/Ec) 40 mg PO QAM Qty: 30 RF: 0 folic acid 1 mg Tablet 1 mg PO QAM Qty: 30 RF: 0 prednisone 10 mg tablet See Rx Instructions .ROUTE .COMPLEX Qty: 120 RF: 0 Continued sertraline 25 mg tablet 25 mg PO HS RF: 0 Adult Multivitamin Gummies 200 mcg Tablet,Chewable 2 tab PO HS RF: 0 Discharge Orders: Discharge Order (Routine); Ordered 04/30/22 Ordered By: Indiana Lindquist Admission Data Admit Date/Time: 04/26/22 15:36 Attending Provider: Indiana Lindquist I. Admit Provider: Aleida Rios Primary Care Provider: Grabiel Draper Other Providers: Aleida Rios Other Interventions: Discharge Summary Assessment (RN) Last Done: 04/30/22 12:38
== END 2022-04-30 13:46 | disposition home or self-care (01) | DRG 809 ==
LOC: ED 11:54 → SUATTDRO 15:36 → 2W 15:36